=== PATIENT | male | born 1960 | race Hispanic/Latino ===

== ENCOUNTER 2020-02-20 15:28 | Observation (INO) | payer OTHER ==
[~2020-02-20] VITALS: Ht 170.2 cm; Wt 79.0 kg
[2020-02-20] MEDS ORDERED: TETANUS/DIPHTHERIA TOXOID [ADULT] 0.5 ML VIAL IM ONE (15:57)
[2020-02-20] MEDS ORDERED: CEFAZOLIN SODIUM 1 GM VIAL ONE (17:11)
[2020-02-20] MEDS ORDERED: KETOROLAC TROMETHAMINE 30MG/ML ONE (17:11)
[2020-02-20] MEDS ORDERED: SODIUM CHLORIDE 0.9% 100 ML IV ONE (17:12)
[2020-02-20] MEDS ORDERED: MAG HYDROX/AL HYDROX/SIMETH ES 30 ML SUSP UDCUP PO PRN (20:15)
[2020-02-20] MEDS ORDERED: MORPHINE SULFATE 4 MG/1ML SYG IV PRN (20:15)
[2020-02-20] MEDS ORDERED: MORPHINE SULFATE 2 MG/ML 1ML SYG IV PRN (20:15)
[2020-02-20] MEDS ORDERED: DIPHENHYDRAMINE HCL 25 MG CAPSULE PO PRN (20:15)
[2020-02-20] MEDS ORDERED: ZOLPIDEM TARTRATE 5 MG TAB PO PRN (20:15)
[2020-02-20] MEDS ORDERED: ONDANSETRON HCL 4 MG/2 ML VIAL IV PRN (20:15)
[2020-02-20] MEDS ORDERED: GUAIFENESIN-DM 200/20 MG 10 ML PO PRN (20:15)
[2020-02-20] MEDS ORDERED: DiphenhydrAMINE HCL 50 MG/ML VIAL IV PRN (20:15)
[2020-02-20] MEDS ORDERED: NITROGLYCERIN 0.4 MG SL TAB SL PRN (20:15)
[2020-02-20] MEDS ORDERED: ACETAMINOPHEN 325 MG TAB PO PRN ×2 (20:15)
[2020-02-20] MEDS ORDERED: LACTULOSE 20 GM/30 ML UDCUP PO PRN (20:15)
[2020-02-20] MEDS ORDERED: COMPOUND PO MISCELLANEOUS 1 EACH MISC MISC PRN (20:30)
[2020-02-20] MEDS ORDERED: MAG HYDROX/AL HYDROX/SIMETH 30 ML, LIDOCAINE HCL 2% VISCOUS 30 ML, DIPHENHYDRAMINE HCL ... PO PRN ×6 (21:00)
[2020-02-20] MEDS: FAMOTIDINE/PF 20 MG/2 ML VIAL IV SCH (21:00)
[2020-02-20 23:35] VITALS: BP 126/77
[2020-02-21] MEDS ORDERED: FERR325T29 PO (01:02)
[2020-02-21] MEDS ORDERED: LISI-617 PO (01:04)
[2020-02-21] MEDS ORDERED: METO-408 PO (01:07)
[2020-02-21] MEDS ORDERED: ATOR10 PO (01:08)
[2020-02-21] MEDS ORDERED: CLOP75TA32 PO (01:14)
[2020-02-21 03:32] VITALS: BP 114/67
[2020-02-21] MEDS: LACTATED RINGERS 1000ML 1,000 ML IV SCH ×3 (04:10→10:37)
[2020-02-21 08:00] VITALS: BP 126/76
[2020-02-21] MEDS: FAMOTIDINE/PF 20 MG/2 ML VIAL IV SCH ×2 (10:36→20:34)
[2020-02-21 12:00] VITALS: BP 121/64
[2020-02-21 16:00] VITALS: BP 96/66
--- NOTE | 2020-02-21 17:47 | NUR ---
INITIAL SW spoke with patient's spouse, Gricel Fisher. Patient lives with spouse. No home services or DME. He is able to complete ADL's independently and drives. Patient still works part time receptionist. PCP is Dr. Addy Martini. Pharmacy is [facility]. DCP is home. Addendum: 02/21/20 at 1749 by JAMAICA DANIELS SS Amended: Links added.
[2020-02-21 20:20] VITALS: BP 127/74
[2020-02-21] MEDS: CEFAZOLIN SODIUM 1 GM VIAL IVP SCH (20:34)
[2020-02-21] MEDS ORDERED: ATORVASTATIN CALCIUM 10 MG TABLET PO SCH (21:00)
[2020-02-21] MEDS: METOPROLOL TARTRATE 25 MG TAB PO SCH (22:00)
[2020-02-22] VITALS (18 sets, daily range): BP systolic 104–136; BP diastolic 67–90
[2020-02-22] MEDS: CEFAZOLIN SODIUM 1 GM VIAL IVP SCH ×2 (06:08→14:59)
[2020-02-22] MEDS ORDERED: CEFAZOLIN SODIUM 1 GM VIAL ONE (07:30)
[2020-02-22] MEDS ORDERED: LIDOCAINE HCL 2% 20ML ONE (08:46)
[2020-02-22] MEDS ORDERED: FENTANYL CITRATE PF 50 MCG/1 ML 2ML VIAL ONE (08:51)
[2020-02-22] MEDS ORDERED: MIDAZOLAM HCL 1 MG/ML 2ML VIAL ONE (08:51)
[2020-02-22] MEDS ORDERED: PROPOFOL 10 MG/ML 20ML VIAL IV ONE (08:51)
[2020-02-22] MEDS ORDERED: LIDOCAINE PF 2% 5ML ABBOJECT ONE (08:51)
[2020-02-22] MEDS ORDERED: FERROUS SULFATE 325 MG TABLET.DR PO SCH (09:00)
[2020-02-22] MEDS ORDERED: LISINOPRIL 5 MG TABLET PO SCH (09:00)
[2020-02-22] MEDS: METOPROLOL TARTRATE 25 MG TAB PO SCH (09:00)
[2020-02-22] MEDS: FAMOTIDINE/PF 20 MG/2 ML VIAL IV SCH (12:13)
--- NOTE | 2020-02-22 16:34 | NUR ---
Discharge patient is discharged and in no distress, INT removed and all discharge instructions given.
== END 2020-02-22 17:00 | disposition home or self-care (01) ==
LOC: EDH 15:28 → EDHIP 20:06 → INTOOBSV 20:06 → 3DH 23:35
PROVIDERS: ADMIT Internal Medicine; ATTEND Surgery Plastic and Reconstructive Surgery
DX: S62.632B Displaced fracture of distal phalanx of right middle finger, initial encounter for open fracture (principal); Z20.828 Contact with and (suspected) exposure to other viral communicable diseases; E11.9 Type 2 diabetes mellitus without complications; W23.0XXA Caught, crushed, jammed, or pinched between moving objects, initial encounter; Y93.89 Activity, other specified; Y92.89 Other specified places as the place of occurrence of the external cause; Y99.8 Other external cause status
CPT/HCPCS: 26765; 36415 ×3; 73140; 80048; 80053 ×2; 83880; 84484; 85025 ×3; 85610; 85730; 87426; 90471; 90714; 93005; 96361; 96374; 96375; 96376 ×2; 99285; A4565; A6445; G0168; G0378 ×5; J0690 ×5; J1885; J2001; J2250; J2704; J3010; J3490 ×4; J7030; J7120; U0003

== ENCOUNTER → 2020-11-05 | Outpatient (CLI) | payer OTHER ==
[~2020-11-05] MED LIST: ATOR10 PO; CLOP75TA32 PO; FERR325T29 PO; LISI-809 PO; METO-408 PO
== END | disposition home or self-care (01) ==
LOC: SHCH 14:45
PROVIDERS: ATTEND Internal Medicine Cardiovascular Disease
DX: R55 Syncope and collapse (principal); I25.10 Atherosclerotic heart disease of native coronary artery without angina pectoris; E78.5 Hyperlipidemia, unspecified
CPT/HCPCS: 93306; 93356

== ENCOUNTER → 2024-10-20 | Outpatient (CLI) | payer OTHER ==
[~2024-10-20] MED LIST changes: -LISI-809 PO; +LISI5TAB21 PO
== END | disposition home or self-care (01) ==
LOC: SHCH 15:36
PROVIDERS: ATTEND Internal Medicine Cardiovascular Disease
DX: I08.8 Other rheumatic multiple valve diseases (principal); I25.10 Atherosclerotic heart disease of native coronary artery without angina pectoris
CPT/HCPCS: 93306